=== PATIENT | female | born 1985 | race Caucasian/White ===

== ENCOUNTER 2017-10-18 10:51 | Emergency (ER) | payer OTHER ==
[2017-10-18 11:13] VITALS: BP 137/88
[2017-10-18] MEDS ORDERED: BSS OPTH.SOL* BTL ONE (11:20)
[2017-10-18] MEDS ORDERED: Tetracaine 0.5% OPTH.SOL 4 ML* 1 DROP BTL ONE (11:20)
[2017-10-18] MEDS ORDERED: Fluorescein Sod TOPICAL 0.6* 0.6 MG TEST OPHTHALMIC ONE ×2 (11:20→11:23)
[2017-10-18] MEDS ORDERED: BSS OPTH.SOL* BTL OPHTHALMIC ONE (11:23)
--- NOTE | 2017-10-18 11:29 | UC ---
Eye Complaint HPI - HPI Summary HPI Summary: Patient last used her contacts lens in , 3 days ago. Patient has had increased left eye redness and irritation with feeling of foreign body sensation. No visual deficits. Clear drainage, I feel sore. - History of Current Complaint Chief Complaint: UCEye Stated Complaint: LEFT EYE IRRITATION Time Seen by Provider: 10/18/17 11:05 Hx Obtained From: Patient Hx Last Menstrual Period: 09/19/17 ?: No Onset/Duration: Sudden Onset, Lasting Days - 3, Still Present Timing: Constant Pain Intensity: 4 Pain Scale Used: 0-10 Numeric Location of Injury: Conjunctiva Character: Foreign Body Sensation Aggravating Factor(s): Light Alleviating Factor(s): Nothing Associated Signs And Symptoms: Positive: Drainage (Clear) - Allergies/Home Medications Allergies/Adverse Reactions: Allergies Allergy/AdvReac Type Severity Reaction Status Date / Time Sulfa (Sulfonamide Allergy Unknown Verified 10/18/17 11:13 Antibiotics) Reaction Details IV contrast dye Allergy Hives Uncoded 10/18/17 11:14 Home Medications: Home Medications Dextroamphetamine/Amphetamine [Adderall 30 mg Tablet] 30 mg PO DAILY 10/18/17 [ History Confirmed 10/18/17] clonazePAM [Clonazepam Odt] 0.25 mg PO PRN 10/18/17 [History] PMH/Surg Hx/FS Hx/Imm Hx Previously Healthy: Yes - Surgical History Surgical History: Yes Surgery Procedure, Year, and Place: gallbladder - Family History Known Family History: Positive: None - Social History Occupation: Employed Full-time Lives: With Family Alcohol Use: Weekly Substance Use Type: Marijuana Substance Use Comment - Amount & Last Used: occ usage Smoking Status (MU): Never Smoked Tobacco Have You Smoked in the Last Year: No Review of Systems Constitutional: Negative Skin: Negative Eyes: Drainage - clear from right eye, Eye Redness - left ENT: Negative Respiratory: Negative Cardiovascular: Negative Gastrointestinal: Negative Genitourinary: Negative Motor: Negative Neurovascular: Negative Musculoskeletal: Negative Neurological: Negative Psychological: Negative Is Patient Immunocompromised?: No All Other Systems Reviewed And Are Negative: Yes Physical Exam Triage Information Reviewed: Yes Appearance: Well-Appearing, No Pain Distress, Well-Nourished Vital Signs: Initial Vital Signs Temp 97.5 F 10/18/17 11:02 Pulse 66 08/04/18 11:02 Resp 14 10/18/17 11:02 BP 137/88 10/18/17 11:02 Pulse Ox 100 10/18/17 11:02 Vital Signs Reviewed: Yes Eye Exam: Normal - right Eyes: Positive: Conjunctiva Inflamed - left, Discharge - left--clear ENT Exam: Normal ENT: Positive: Normal ENT inspection, Hearing grossly normal. Negative: Nasal congestion, Trismus, Muffled voice, Hoarse voice Dental Exam: Normal Neck exam: Normal Neck: Positive: Supple, Nontender Respiratory Exam: Normal Respiratory: Positive: No respiratory distress, No accessory muscle use Cardiovascular Exam: Normal Cardiovascular: Positive: Pulses Normal, Brisk Capillary Refill Musculoskeletal Exam: Normal Musculoskeletal: Positive: Strength Intact, ROM Intact Neurological Exam: Normal Neurological: Positive: Alert, Muscle Tone Normal Psychological Exam: Normal Skin Exam: Normal Diagnostics - Laboratory Diagnostic Studies Completed/Ordered: fluoresein strain done with no dye up take , perrla, eomi Eye Complaint Course/Dx - Course Course Of Treatment: cipro eye drops, pain control, if worsening or fails to improve follow with closest emergency department, follow with eye care provider when returning to [place]. No contact lens use until cleared by eye care provider - Differential Dx/Diagnosis Provider Diagnoses: OS COnjuctivitis Discharge - Sign-Out/Discharge Documenting (check all that apply): Patient Departure - Discharge Plan Condition: Stable Disposition: HOME Patient Education Materials: How to Use Eye Drops (ED), Conjunctivitis (ED) Referrals: No Primary Care Phys,NOPCP [Primary Care Provider] - Additional Instructions: Follow with eye care provider when return to [place]. If while traveling if this worsens or fails to improve please go directly to closest hospital---Do not use contacts until cleared by eye care provider - Billing Disposition and Condition Condition: STABLE Disposition: Home Attestation Statement User Type: Provider - I was available for consult. This patient was seen by the BRIGHT. The patient was not presented to, seen by, or examined by me. -Stacy
[2017-10-18] MEDS ORDERED: Ciprofloxacin 0.3% OPTH.SOL* 2.5 ML BTL LEFT EYE ONE (11:36)
[2017-10-18] MEDS ORDERED: HYDROcodone/ACETAMIN 5-325 MG* 1 TAB PO ONE (11:41)
== END 2017-10-18 12:09 | disposition home or self-care (01) ==
LOC: UCCORT 10:51
DX: Z88.2 Allergy status to sulfonamides (principal); H10.9 Unspecified conjunctivitis
CPT/HCPCS: 99203; A9270-GY; G0463